=== PATIENT | female | born 1960 | race Asian ===

== ENCOUNTER 2019-10-29 10:08 | Emergency (ER) | payer OTHER ==
[2019-10-29 10:49] LABS: GLUCOSE, URINE (UA) NEGATIVE (NEGATIVE); KETONES,URINE (UA) NEGATIVE (NEGATIVE); LEUKOCYTE ESTERASE, URINE NEGATIVE (NEGATIVE); NITRITE,URINE NEGATIVE (NEGATIVE); OCCULT BLOOD,URINE NEGATIVE (NEGATIVE); PROTEIN,URINE NEGATIVE (NEGATIVE); UROBILINOGEN,URINE 0.2 (NORMAL) E.U./dL (NORMAL)
[2019-10-29 10:50] LABS: CLARITY,URINE CLEAR (CLEAR)
[2019-10-29 10:54] LABS: BILIRUBIN,URINE NEGATIVE (NEGATIVE); ICTOTEST,URINE NEGATIVE
[2019-10-29 11:50] LABS: BASOPHILS % (AUTO) 0.9 %; EOSINOPHILS # (AUTO) 0.2 10^3/uL (0.0-0.7); EOSINOPHILS % (AUTO) 3.5 %; HGB - HEMOGLOBIN 15.1 g/dL (12.0-16.0); LYMPHOCYTES # (AUTO) 1.5 10^3/uL (1.5-3.5); LYMPHOCYTES % (AUTO) 34.3 %; MEAN CORPUSCULAR HEMOGLOBIN 30.8 pg (27.0-31.0); MEAN CORPUSCULAR HGB CONC 32.8 g/dL (32.0-36.0); MEAN CORPUSCULAR VOLUME 94.1 fL (81.0-99.0); MEAN PLATELET VOLUME 9.8 fL (7.9-10.8); MONOCYTES # (AUTO) 0.4 10^3/uL (0.0-1.0); MONOCYTES % (AUTO) 9.4 %; NEUTROPHILS # (AUTO) 2.2 10^3/uL (1.5-6.6); NEUTROPHILS % (AUTO) 51.7 %; PLT - PLATELET COUNT 212 10^3/uL (130-450); RED CELL DISTRIBUTION WIDTH 12.4 % (12.0-15.0); WHITE BLOOD COUNT 4.3 x10^3/uL (4.8-10.8)
[2019-10-29 12:02] LABS: ALBUMIN 4.7 g/dL (3.2-5.5); ALBUMIN/GLOBULIN RATIO 1.5 (1.0-2.2); BILIRUBIN,TOTAL 1.9 mg/dL (0.2-1.0); CALCIUM 9.3 mg/dL (8.5-10.3); CREATININE 0.7 mg/dL (0.4-1.0); TOTAL PROTEIN 7.8 g/dL (6.7-8.2)
--- NOTE | 2019-10-29 12:18 | ED Physician Documentation ---
PD HPI ABD PAIN - Stated complaint Stated Complaint: LT SIDE ABD PX - Chief complaint Chief Complaint: Abd Pain - History obtained from History obtained from: Patient - History of Present Illness Timing - onset: How many weeks ago (1 week of left back pain, worse last evening into today.) Timing - duration: Weeks (1) Timing - details: Gradual onset, Still present (worse the past 2 days (yesterday into tod ay worse).) Quality: Cramping, Aching, Stabbing, Pain Location: LLQ Radiation: Left flank (she says it does not seem like spinal/central low back process, but more abd location into the back.) Associated symptoms: Nausea. No: Fever, Vomiting, Diarrhea, Dysuria, Hematuria, Chest pain, Near syncope / syncope, Loss of appetite, Vaginal bleeding Similar symptoms before: Has not had sx before Recently seen: Not recently seen Review of Systems Constitutional: denies: Fever, Chills Nose: denies: Rhinorrhea / runny nose, Congestion, Sinus pressure / pain Throat: denies: Sore throat Cardiac: denies: Chest pain / pressure Respiratory: denies: Dyspnea, Cough GI: reports: Abdominal Pain, Nausea. denies: Abdominal Swelling, Vomiting, Diarrhea : denies: Dysuria, Frequency Skin: denies: Rash, Lesions Musculoskeletal: reports: Back pain. denies: Neck pain Neurologic: reports: Generalized weakness. denies: Focal weakness, Near syncope PD PAST MEDICAL HISTORY - Past Medical History Cardiovascular: None Respiratory: None Neuro: None Endocrine/Autoimmune: None - Present Medications Home Medications: Ambulatory Orders Medication Instructions Recorded Confirmed Docusate Sodium 100 mg PO DAILY #15 capsule 10/29/19 Hydrocodone/Acetaminophen [[place] 1 each PO Q6H PRN #20 tablet 10/29/19 5-325 Tablet] Naproxen 375 mg PO BID #20 tablet 10/29/19 Ondansetron Odt [Zofran] 4 mg TL Q6H PRN #10 tablet 10/29/19 Pantoprazole [Protonix] 40 mg PO DAILY 10/29/19 10/29/19 Tizanidine HCl 4 mg PO TID PRN #25 capsule 10/29/19 atenoloL [Atenolol] 25 mg PO DAILY 10/29/19 10/29/19 - Allergies Allergies/Adverse Reactions: Allergies Allergy/AdvReac Type Severity Reaction Status Date / Time No Known Drug Allergies Allergy Verified 10/29/19 10:20 - Living Situation Living Situation: reports: With spouse/s.o. Living Arrangement: reports: At home - Social History Does the pt smoke?: No Does the pt drink ETOH?: No Does the pt have substance abuse?: No PD ED PE NORMAL - Vitals Vital signs reviewed: Yes - General General: Alert and oriented X 3, Well developed/nourished, Other (appears in left abd pain. ) - HEENT HEENT: PERRL, EOMI, Pharynx benign - Neck Neck: Supple, no meningeal sign, No adenopathy - Cardiac Cardiac: RRR, No murmur - Respiratory Respiratory: Clear bilaterally - Abdomen Abdomen: Normal bowel sounds, Soft, Non distended, No organomegaly, Other (left lower to mid abd tenderness with local guarding but no percussion nor rebound tenderness. ) - Female Female : Deferred - Rectal Rectal: Deferred - Back Back: Other (left CVA area with some tenderness. No spinous tenderness to palpation nor percussion. No redness, rash, sores in back. Skin not tender to soft nor firm touch. ) - Derm Derm: Normal color, Warm and dry - Extremities Extremities: No deformity, No tenderness to palpate, Normal ROM s pain, No edema, No calf tenderness / cord - Neuro Neuro: Alert and oriented X 3, No motor deficit, No sensory deficit, Normal speech Results - Vitals Vitals: Vital Signs - 24 hr 10/29/19 10/29/19 10/29/19 10:17 11:38 12:56 Temperature 36.6 C Heart Rate 54 L 50 L 55 L Respiratory 18 20 17 Rate Blood Pressure 125/96 H 115/78 149/91 H O2 Saturation 96 96 96 10/29/19 10/29/19 14:00 15:53 Temperature Heart Rate 45 L 82 Respiratory 14 14 Rate Blood Pressure 137/69 H 151/80 H O2 Saturation 94 100 Oxygen O2 Source Room air - Labs Labs: Laboratory Tests 10/29/19 10/29/19 10/29/19 10:38 11:30 11:30 WBC 4.3 L RBC 4.90 Hgb 15.1 Hct 46.1 MCV 94.1 MCH 30.8 MCHC 32.8 RDW 12.4 Plt Count 212 MPV 9.8 Neut # (Auto) 2.2 Lymph # (Auto) 1.5 [place] # (Auto) 0.4 Eos # (Auto) 0.2 Baso # (Auto) 0.0 Absolute Nucleated RBC 0.00 Nucleated RBC % 0.0 Sodium 138 Potassium 4.0 Chloride 103 Carbon Dioxide 25 Anion Gap 10.0 BUN 18 Creatinine 0.7 Estimated GFR (MDRD) 85 L Glucose 120 H Calcium 9.3 Total Bilirubin 1.9 H AST 48 H ALT 65 H Alkaline Phosphatase 60 Total Protein 7.8 Albumin 4.7 Globulin 3.1 Albumin/Globulin Ratio 1.5 Lipase 39 Urine Color YELLOW Urine Clarity CLEAR Urine pH 5.0 Ur Specific [place] >=1.030 H Urine Protein NEGATIVE Urine Glucose (UA) NEGATIVE Urine Ketones NEGATIVE Urine Occult Blood NEGATIVE Urine Nitrite NEGATIVE Urine Bilirubin NEGATIVE Urine Urobilinogen 0.2 (NORMAL) Ur Leukocyte Esterase NEGATIVE Ur Microscopic Review NOT INDICATED Urine Culture Comments NOT INDICATED - Rads (name of study) abd/pelvic CT Radiology: Prelim report reviewed (no acute cause for pain. Has left renal cyst appearing benign and would not think as causing pain. ), See rad report PD MEDICAL DECISION MAKING - ED course Complexity details: reviewed results, re-evaluated patient, considered differential, d/w patient Departure - Departure Disposition: 01 Home, Self Care Clinical Impression: Left low back pain Qualifiers: Chronicity: acute Sciatica presence: without sciatica Qualified Code(s): M54.5 - Low back pain Condition: Stable Record reviewed to determine appropriate education?: Yes Instructions: ED Abdominal Pain Unkn Cause Follow-Up: BRYAN JOHNSON ARNP [Primary Care Provider] - Prescriptions: Docusate Sodium 100 mg PO DAILY #15 capsule Hydrocodone/Acetaminophen [[place] 5-325 Tablet] 1 each PO Q6H PRN #20 tablet PRN Reason: Pain Naproxen 375 mg PO BID #20 tablet Ondansetron Odt [Zofran] 4 mg TL Q6H PRN #10 tablet PRN Reason: Nausea / Vomiting Tizanidine HCl 4 mg PO TID PRN #25 capsule PRN Reason: Spasms Comments: Your urine test, blood count, CT scan do not show any acute abnormalities. (There was an incidental cyst in the left kidney noted on the report but typically would not be a cause of pain). This seems then likely musculoskeletal pain. Use an anti-inflammatory such as naproxen twice daily. Tizanidine muscle relaxant for stiffness and spasms. Use ondansetron if needed for nausea. To this add Tylenol or hydrocodone as needed for pain. Daily stool softener to prevent constipation. Recheck if not improved well over the next couple of days, call for an appointment with your primary care. Return if worsening or other symptoms. Forms: Activity restrictions Discharge Date/Time: 10/29/19 15:53
[2019-10-29] MEDS ORDERED: HYDROmorphone 1 MG/ML CARPUJECT IVP STA (12:42)
[2019-10-29] MEDS ORDERED: ONDANSETRON 4 MG/2 ML VIAL IVP STA (12:42)
[2019-10-29] MEDS ORDERED: KETOROLAC 15 MG/ML VIAL IVP STA (12:42)
[2019-10-29] MEDS ORDERED: IOVERSOL 320 100 ML VIAL IVP ONE ×2 (13:25→15:08)
--- NOTE | 2019-10-29 14:15 | CT Report ---
Reason: left abd pain x days; increasing Procedure Date: 10/29/2019 Accession Number: [id number] / [id number] Procedure: CT - Abdomen/Pelvis W CPT Code: Final Report FULL RESULT: EXAM: CT ABDOMEN AND PELVIS EXAM DATE: 10/29/2019 02:03 PM. CLINICAL HISTORY: Left abdominal pain x days; increasing. COMPARISONS: None. TECHNIQUE: Routine helical CT imaging was performed through the abdomen and pelvis. IV contrast: OPTI-320 100 mL. Enteric contrast: No. Reconstructions: Coronal and sagittal. In accordance with CT protocol optimization, one or more of the following dose reduction techniques were utilized for this exam: automated exposure control, adjustment of mA and/or KV based on patient size, or use of iterative reconstructive technique. FINDINGS: Lung Bases: Unremarkable. Liver: The liver is hypoattenuating with suggestion of sparing in the gallbladder fossa, steatosis. Gallbladder/Bile Ducts: Unremarkable. Spleen: Normal. Pancreas: Normal. Adrenal Glands: Normal. Kidneys: A 2 cm left lower pole hyperdense renal lesion is incompletely characterized. There are additional left renal hypodensity which are small to characterize. There is no hydronephrosis or renal calculi on either side. Peritoneal Cavity/Bowel: There is no bowel obstruction. There is no free fluid or free air. There is no lymphadenopathy by size criteria.The appendix is well visualized and normal. Pelvic Organs: Normal. The bladder and visualized pelvic organs are within normal limits. Vasculature: No aneurysms or other significant abnormality. Bones: Scoliosis. No aggressive osseous lesions are seen. Other: None. IMPRESSION: The etiology of the patient's abdominal pain is not delineated. Incompletely characterized left renal lesion. Recommendation is for routine outpatient ultrasound to see if this can be characterized as cyst without concerning features. RADIA
[2019-10-29 15:54] VITALS: BP 151/80
== END 2019-10-29 15:53 | disposition home or self-care (01) ==
LOC: ED 10:08
DX: M54.5 Low back pain (principal); R10.32 Left lower quadrant pain; R11.0 Nausea; N28.1 Cyst of kidney, acquired; R53.1 Weakness
CPT/HCPCS: 36415; 74177; 80053; 81003; 83690; 85025; 96374; 99284; J1170; Q9967; 81001; 87086

== ENCOUNTER 2019-12-03 10:19 | Outpatient (CLI) | payer OTHER ==
--- NOTE | 2019-12-09 15:27 | Mammography Report ---
Reason: ROUTINE MAMMO Procedure Date: 12/03/2019 Accession Number: [id number] / [id number] Procedure: MGN - Screening Mammo w/Edvin CPT Code: Final Report FULL RESULT: EXAM: Screening Mammo w/Edvin DATE: 12/03/2019 10:48 AM CLINICAL HISTORY: Screening encounter. TECHNIQUE: (B) - Bilateral CC, laterally exaggerated CC, MLO views were obtained. COMPARISON: 10/07/2018 through 06/02/2014. PARENCHYMAL PATTERN: (A) - The breast(s) demonstrate(s) scattered fibroglandular densities. FINDINGS: There are no suspicious masses, calcifications, or areas of distortion. IMPRESSION: Negative examination. BI-RADS category 1. RECOMMENDATION: (ANNUAL) - Recommend routine annual screening mammography. BI-RADS CATEGORY: (1) - Negative. STANDARD QUALIFYING STATEMENTS: 1. This examination was not reviewed with the aid of Computer-Aided Detection (CAD). 2. A negative or benign imaging report should not preclude biopsy if clinically suspicious findings are present. 3. Dense breasts may obscure an underlying neoplasm. 4. This examination was reviewed with the aid of 3D breast imaging (tomosynthesis).
== END 2019-12-03 10:20 | disposition home or self-care (01) ==
LOC: DI.N 10:19
DX: Z12.31 Encounter for screening mammogram for malignant neoplasm of breast (principal)
CPT/HCPCS: 77063; 77067

== ENCOUNTER 2021-01-14 10:06 | Outpatient (CLI) | payer OTHER ==
--- NOTE | 2021-01-17 09:24 | Mammography Report ---
BILATERAL DIGITAL DIAGNOSTIC MAMMOGRAM 3D/2D: 01/14/2021 CLINICAL: Follow-up of cysts. Comparison is made to exams dated: 09/05/2016 mammogram - [facility], 12/03/2019 mammogram - [facility], and 09/21/2016 ultrasound - [facility]. The tissue of both br easts is heterogeneously dense. This may lower the sensitivity of mammography. No significant masses, calcifications, or other findings are seen in either breast. IMPRESSION: INCOMPLETE: NEEDS ADDITIONAL IMAGING EVALUATION No mammographic evidence of malignancy. A targeted ultrasound is recommended to follow-up small cyst seen on prior ultrasound in the right br east. This exam was interpreted at Station ID: [id number]. NOTE: For mammograms, a report in lay terms will be sent to the patient. Approximately 15% of breast malignancies will not be visualized mammographically. In the management of a palpable breast mass, a negative mammogram must not discourage biopsy of a clinically suspicious lesion. Electronically Signed By: Segundo Veras M.D. slc/:01/14/2021 11:56:45 ACR BI-RADS Category 0: Incomplete 3340F PARENCHYMAL PATTERN: (D) - The breast(s) demonstrate(s) heterogeneously dense fibroglandular parenchy ma. BI-RADS CATEGORY: (0) - 0 Ultrasound [id number] Immediate follow-up LATERALITY: (B)
--- NOTE | 2021-01-17 09:25 | Ultrasound Report ---
LIMITED ULTRASOUND OF RIGHT BREAST: 01/14/2021 CLINICAL: Additional evaluation requested from prior study. Comparison is made to exams dated: 01/14/2021 mammogram, 12/03/2019 mammogram - [facility], 09/21/2016 ultrasound, and 09/05/2016 mammogram - [facility]. Color flow and real-time ultrasound of the right breast 9 o'clock region were performed. Becerra scale images of the real-time examination were reviewed. No significant abnormalities were seen sonographically in the right breast. No mass or cyst in the re gion of remotely seen cyst. IMPRESSION: NEGATIVE There is no sonographic evidence of malignancy. A 1 year screening mammogram is recommended. Exam findings were conveyed to the patient. This exam was interpreted at Station ID: [id number]. Electronically Signed By: Segundo Veras M.D. slc/:01/14/2021 12:27:33 Ultrasound BI-RADS: 1 Negative BI-RADS CATEGORY: (1) - 1 RECOMMENDATION: (ANNUAL) - Recommend routine annual screening mammography. [id number] 1 year screening LATERALITY: (B)
== END 2021-01-14 10:07 | disposition home or self-care (01) ==
LOC: DI 10:06
PROVIDERS: ATTEND Family Medicine
DX: N60.91 Unspecified benign mammary dysplasia of right breast (principal); R92.8 Other abnormal and inconclusive findings on diagnostic imaging of breast